=== PATIENT | male | born 1950 | race Caucasian/White ===

== ENCOUNTER 2016-05-09 18:24 | Emergency (ER) | payer OTHER ==
--- NOTE | ~2016-05-09 | CT71 ---
[facility] A Service of [facility] RADIOLOGY TEXT RESULTS PATIENT: RADHA SIMMONS LOCATION: [facility] : 52 UNIT #: [id number] AGE: [address]: Joselito Perdomo MD SEX: M ORDER DR: [id number] [facility]. [place], [place] [address] [id number] MR#: [id number] #: [id number] NAME: RADHA SIMMONS : 1950 SEX: M STUDY DATE/TIME: 05/09/2016 18:21 UNIT: DEAN ROOM: STUDY DESCRIPTION: CT Head Wo Contrast Attending Physician: Joselito Perdomo M.D. Ordering Physician: Joselito Perdomo M.D. Primary Care Physician: Tello Parsons M.D. MEDICAL IMAGING REPORT This report is preliminary unless electronic signature is present EXAM CT head without IV contrast COMPARISON None INDICATIONS A 66-year-old male with altered mental status, confusion and disorientation today. TECHNIQUE This CT exam was performed with one or more of the following radiation dose reduction techniques: automatic exposure control, adjustment of mA and/or kV according to patient size, and iterative reconstruction. FINDINGS Exam is limited patient motion. Mastoid air cells, middle ears and visualized paranasal sinuses are well-aerated. There is a mucous retention cyst versus polyp in the left sphenoid sinus. No evidence of acute fracture or suspicious osseous lesion. Gas is noted in the cavernous sinus on the right and within the cavernous sinus on the left, likely due to air introduced iatrogenically into the venous system by IV access. Focus of gas is also noted on the right at the periphery of the foramen of magnum. There are minimal calcification of the vertebral arteries bilaterally. There is normal cerebral volume. There is no evidence of abnormal extraaxial fluid collection or acute intracranial hemorrhage. Evaluation for acute ischemia is significantly limited by motion. No convincing evidence of acute ischemia on this exam. No mass effect. IMPRESSION [facility] A Service of [facility] RADIOLOGY TEXT RESULTS PATIENT: RADHA SIMMONS LOCATION: [facility] : 52 UNIT #: [id number] AGE: [address]: Joselito Perdomo MD SEX: M ORDER DR: Foci of gas seen in the region of the cavernous sinus bilaterally and also seen in the right aspect of the periphery of the foramen magnum. This is favored to represent venous gas, possibly iatrogenic due to IV placement. Correlation for history of possible IV drug use also recommended. This gas is within the extraaxial space and correlation to exclude signs of infection also recommended which is thought much less likely. There is no convincing evidence of abnormal extraaxial fluid collection. No acute intracranial ischemia or acute hemorrhage. Normal cerebral volume. Dictated by... Marcial Nava M.D. THIS IS AN ELECTRONICALLY VERIFIED REPORT Marcial Nava M.D. at 05/10/2016 9:17 PM Jacky TD: 05/10/2016 13:39 JOB #: [id number] MEDICAL IMAGING REPORT Page 1 of 1 COPY
--- NOTE | ~2016-05-09 | EKG ---
PATIENT: RADHA SIMMONS UNIT #: [id number] Ventricular Rate: 75 BPM Atrial Rate: 75 BPM P-R Interval: 138 ms QRS Duration: 80 ms Q-T Interval: 468 ms QTC Calculation(Bezet): 522 ms P [place]: 35 degrees Calculated R [place]: 46 degrees Calculated T [place]: 9 degrees Diagnosis Line: Normal sinus rhythm Diagnosis Line: Possible Left atrial enlargement Diagnosis Line: Borderline ECG Diagnosis Line: No previous ECGs available Diagnosis Line: Confirmed by JONNY HERNÁNDEZ MD ([id number]) on 05/12/2016 Diagnosis Line: 10:52:32 PM INTERPRETING MD: BETTY LUTZ
[2016-05-09 17:40] LABS: POC - CKMB 2.2 ng/mL (0.0-7.9); POC - TROPONIN <0.05 ng/mL (<=0.05)
[2016-05-09 17:41] LABS: BASOPHIL% 0.2 % (0-2.5); EOSINOPHIL% 0.2 % (0.0-7.0); HEMATOCRIT 57.3 % (38.0-50.0); HEMOGLOBIN 18.9 gm/dL (13.0-16.0); LYMPHOCYTE# 1.9 X10e3 (1.0-3.5); LYMPHOCYTE% 22.7 % (17.0-45.0); MEAN CELL VOLUME 92.2 FL (83-96); MEAN CORPUSCULAR HEMOGLOBIN 30.4 PG (28-34); MEAN PLATELET VOLUME 8.1 FL (6.5-11.5); MONOCYTE# 0.4 X10e3 (0-1.0); MONOCYTE% 4.2 % (3.0-12.0); NEUTROPHIL# 6.2 X10e3 (1.5-7.1); NEUTROPHIL% 72.7 % (40-75); PLATELET COUNT 178 X10e3 (140-420); RED BLOOD COUNT 6.22 X10e (3.90-5.60); RED CELL DISTRIBUTION WIDTH 14.3 % (11.0-15.5); WHITE BLOOD COUNT 8.5 X10e3 (4.0-10.5)
[2016-05-09 17:43] LABS: DIFF IND NO
[2016-05-09 18:05] LABS: ALBUMIN SERUM 4.7 g/dL (3.5-5.0); ALKALINE PHOSPHATASE 64 U/L (32-92); ALT (SGPT) 33 U/L (10-40); AST (SGOT) 28 U/L (10-42); BILIRUBIN,TOTAL 1.8 mg/dL (0.2-2.0); BLOOD UREA NITROGEN 26 mg/dL (9-23); BUN/CREATININE RATIO 28.88; CALCIUM SERUM 9.4 mg/dL (8.4-10.2); CARBON DIOXIDE 18 mmol/L (22-31); CHLORIDE 105 mmol/L (100-111); CREATININE SERUM 0.9 mg/dL (0.6-1.4); GLOM FILT RATE Estimated 89.3 mL/min (>60); GLUCOSE FASTING 221 mg/dL (70-110); LIPASE 24 U/L (22-51); POTASSIUM 3.3 mmol/L (3.5-5.1); PROTEIN TOTAL SERUM 8.1 g/dL (6.0-8.3); SODIUM 141 mmol/L (135-145)
[2016-05-09 18:06] LABS: ALCOHOL BLOOD <5 mg/dL (0)
== END 2016-05-09 20:10 | disposition home or self-care (01) ==
LOC: CED 18:24
PROVIDERS: Emergency Medicine
DX: E87.6 Hypokalemia (principal); T65.91XA Toxic effect of unspecified substance, accidental (unintentional), initial encounter
CPT/HCPCS: 36415; 70450; 80053; 82140; 82553; 83690; 84484; 85025; 93005; 96360; 99284; G0480